=== PATIENT | female | born 1995 | race Caucasian/White ===

== ENCOUNTER 2021-03-18 03:59 | Inpatient (IN) | payer BC ==
[2021-03-18] MEDS ORDERED: Calcium Carbonate 500 MG Tab.Chew PO PRN (04:21)
[2021-03-18] MEDS ORDERED: Lidocaine 1% 50 ML MDV INJECT PRN (04:21)
[2021-03-18] MEDS ORDERED: Nalbuphine 10 MG/1 ML Vial IVPUSH PRN (04:21)
[2021-03-18] MEDS ORDERED: Acetaminophen 325 MG Tab PO PRN ×2 (04:21→17:42)
[2021-03-18] MEDS ORDERED: Ondansetron 4 MG/2 ML SDV IVPUSH PRN (04:21)
[2021-03-18] MEDS ORDERED: Ampicillin 2 GM in Sodium Chloride 0.9% 100 ML IV ONE (04:21)
[2021-03-18] MEDS ORDERED: Oxytocin/Lactated Ringers 10 UNIT/1,000 ML BAG IV SCH ×2 (04:30)
[2021-03-18] MEDS: Lactated Ringers 1,000 ML IV SCH ×3 (04:33→08:05)
[2021-03-18] MEDS ORDERED: fentaNYL 100 MCG/2 ML SDV EPIDUR PRN (04:44)
[2021-03-18] MEDS ORDERED: ePHEDrine 50 MG/ML SDV IVPUSH PRN (04:44)
[2021-03-18] MEDS ORDERED: diphenhydrAMINE 50 MG/ML SDV IVPUSH PRN (04:44)
[2021-03-18] MEDS: Bupivacaine/fentaNYL/NS 100 ML Bag EPIDUR PRN ×2 (04:59→13:11)
[2021-03-18] MEDS: Ampicillin 1 GM in Sodium Chloride 0.9% 100 ML IV SCH ×2 (08:05→11:55)
[2021-03-18] MEDS ORDERED: Lidocaine 1.5% with EPINEPHrine 1:200,000 5 ML Amp ONE (12:00)
[2021-03-18] MEDS ORDERED: Misoprostol 200 MCG Tab ONE (15:59)
[2021-03-18] MEDS ORDERED: Misoprostol 200 MCG Tab PO ONE (16:02)
[2021-03-18] MEDS ORDERED: Benzocaine/Menthol 20%-0.5% Spray 78 GM Cannister TOP PRN (17:42)
[2021-03-18] MEDS ORDERED: Witch Hazel Medicated Pads 40/Jar TOP PRN (17:42)
[2021-03-18] MEDS ORDERED: Ibuprofen 600 MG Tab PO PRN (17:42)
[2021-03-18] MEDS ORDERED: Docusate Sodium 100 MG Cap PO PRN (17:42)
== END 2021-03-19 15:11 | disposition home or self-care (01) | DRG 560 ==
LOC: JD.OBCHECK 03:59 → JD.OB 04:09 → JD.OBCHECK 04:20 → JD.OB 04:21 → OBSVTOIN 15:53 → JD.OB 15:54
PROVIDERS: ADMIT Obstetrics & Gynecology; ATTEND Obstetrics & Gynecology
PROC: 10E0XZZ Delivery of Products of Conception, External Approach (ICD-10-PCS; principal; 2021-03-18)
PROC: 10907ZC Drainage of Amniotic Fluid, Therapeutic from Products of Conception, Via Natural or Artificial Opening (ICD-10-PCS; 2021-03-18)
PROC: 3E0R3BZ Introduction of Anesthetic Agent into Spinal Canal, Percutaneous Approach (ICD-10-PCS; 2021-03-18)
PROC: 00HU33Z Insertion of Infusion Device into Spinal Canal, Percutaneous Approach (ICD-10-PCS; 2021-03-18)
PROC: 0KQM0ZZ Repair Perineum Muscle, Open Approach (ICD-10-PCS; 2021-03-18)
DX: O98.52 Other viral diseases complicating childbirth (principal); U07.1 COVID-19; Z3A.39 39 weeks gestation of pregnancy; Z37.0 Single live birth; O99.892 Other specified diseases and conditions complicating childbirth; N13.30 Unspecified hydronephrosis; O99.824 Streptococcus B carrier state complicating childbirth; O77.0 Labor and delivery complicated by meconium in amniotic fluid; O70.1 Second degree perineal laceration during delivery
CPT/HCPCS: 01967; 36415; 51702; 59025; 59409; 85025; 86592; 86850; 86900; 86901; A9270-GY; J0290; J2405; J2590; J3010; J7120; U0002